=== PATIENT | female | born 2005 | race Caucasian/White ===

== ENCOUNTER 2024-12-13 21:40 | Emergency (ER) | payer OTHER, SELFPAY ==
[2024-12-13 21:42] VITALS: BP 112/84
--- NOTE | 2024-12-14 00:19 | ED.GENMED ---
History of Present Illness
General
Chief Complaint: Back Pain
History of Present Illness
History of Present Illness:
FOCUSED PAST MEDICAL HISTORY
- The patient has no significant past medical history
REVIEW OF OLD RECORDS
- No old records available for review in [facility]
Note:
CHIEF COMPLAINT(S)
Low back pain and diffuse abdominal pain.
HISTORY OF PRESENT ILLNESS
The patient is a 19-year-old female presenting with two days of low back pain, accompanied by diffuse abdominal pain. The onset of symptoms was mild but has progressively worsened. The patient denies dysuria and the possibility of . She
reported using ibuprofen (Motrin) approximately six hours prior, which provided minimal relief.
ADDITIONAL HISTORY OBTAINED FROM SOURCE OTHER THAN PATIENT
Additional information was obtained from the patients mother at the bedside.
PHYSICAL EXAM
- General: Well appearing in no distress
- HEENT: Moist oral mucosa
- Cardiovascular: No murmurs, normal heart rate, regular rhythm, No chest wall tenderness
- Pulmonary: No respiratory distress, breath sounds are clear and equal
- Abdomen: Soft with no peritoneal signs, minimal diffuse abdominal tenderness
- Back: There is midline L-spine tenderness, decreased active range of motion of the thoracolumbar spine related pain
- Neurologic: Excellent strength all extremities, no coordination deficits
- Psychiatric: Appropriate mental status, normal insight and judgement
- Extremities: Nontender, no edema, moves all extremities equally
- Skin: No rash, no lesions
SUMMARY OF ENCOUNTER
The patient was seen in the emergency department for low back pain and diffuse abdominal pain persisting for two days. The symptoms have been increasing in intensity despite the use of ibuprofen. Physical exam revealed midline lumbar spine
tenderness and mild diffuse abdominal tenderness. The management included obtaining a lumbar spine X-ray, administering toradol, and ordering a urinalysis and urine HCG.
DISPOSITION
Discharge.
EMERGENCY TREATMENTS ADMINISTERED
- A dose of ketorolac (Toradol) was administered.
MEDICAL DECISION MAKING
- Number and Complexity of Problems Addressed:
Chronic conditions affecting care.
- Data:
Category 1:
My independent interpretation of the lumbar spine X-ray will be performed once available. A urinalysis and urine test have been ordered.
Category 2:
Clinical information was obtained from the patients mother acting as an independent historian.
Category 3:
The mother was involved in discussions regarding the patients symptoms and care plan.
DIFFERENTIAL DIAGNOSIS
The Differential Diagnosis includes, in no particular order and is not limited to:
- Muscular strain
- Urinary tract infection
- Kidney stone
- Dysmenorrhea
- Ovarian cyst
- Pelvic inflammatory disease
- Appendicitis
- Constipation
- Gastroenteritis
- Lumbar spine pathology
INDEPENDENT REVIEW OF LABS AND INTERPRETATION OF TESTS
- My independent interpretation of lumbar spine X-ray no acute finding on x-ray
RADIOLOGY
- X-ray of the lumbar spine obtained
LABS
- Urinalysis 80-90 white cells however the patient has greater than 30 squamous epithelial cells, hCG testing negative
UPDATE
- I reevaluated the patient, the patient does feel improved after Toradol was given IM. Although the urinalysis suggest more of a contaminated specimen, she does have some increased urinary frequency therefore we will start antibiotics.
SUMMARY OF ENCOUNTER
The patient presented to the emergency department with low back pain and diffuse abdominal pain for two days, which has been increasing in intensity despite the use of [id number] ibuprofen. Physical examination showed midline lumbar spine
tenderness and mild diffuse abdominal tenderness. A lumbar spine X-ray was conducted, revealing no significant abnormalities. The urinalysis showed an increased number of white blood cells, suggestive of infection, but also had a high number of skin
cells, indicating a possible contaminated specimen. The decision was made to treat for a urinary tract infection with antibiotics, despite the possibility of specimen contamination, due to patient symptoms. Ibuprofen (Motrin) was recommended for
pain management.
EMERGENCY TREATMENTS ADMINISTERED
A dose of ketorolac (Toradol) was administered.
PLAN
Initiate antibiotic treatment for potential urinary tract infection. Continue ibuprofen for pain management, taking two [id number]-[id number] tablets every eight hours with food.
INDEPENDENT REVIEW OF LABS AND INTERPRETATION OF TESTS
- My independent review of lumbar spine X-ray indicates no significant abnormalities.
- My independent review of the urinalysis shows an increased number of white blood cells but is potentially contaminated by skin cells.
PATIENT EDUCATION AND COUNSELING
Discussed the potential for the urinalysis to be a false positive for infection due to contamination but decided to treat symptomatically with antibiotics. Advise on the importance of taking ibuprofen with food to minimize gastrointestinal
discomfort.
FOLLOW-UP INSTRUCTIONS
If the radiologist identifies any concerning findings on the lumbar spine X-ray, the patient will be contacted. Otherwise, no immediate follow-up was specified.
MEDICATION RECONCILIATION
1. Ketorolac administered in the emergency department.
2. Continue OTC ibuprofen, two tablets every eight hours.
MEDICAL DECISION MAKING
- Number and Complexity of Problems Addressed: Chronic conditions affecting care. Differential Diagnosis includes muscular strain, urinary tract infection, kidney stone, dysmenorrhea, ovarian cyst, pelvic inflammatory disease, appendicitis,
constipation, gastroenteritis, lumbar spine pathology.
- Data:
Category 1: My independent interpretation of the lumbar spine X-ray and urinalysis has been conducted.
Category 2: Clinical information was obtained from the patients mother, acting as an independent historian.
- Risk: Prescription drug management was utilized with the initiation of antibiotic therapy. Consideration of Admission/Observation: Escalation of care including admission/observation was considered given the complexity and risk of the patients
presenting complaint, exam findings, and/or their underlying comorbidities. However, ultimately I feel the patient is safe for outpatient management with close follow up. Reasoning: Work-up reassuring, does not reveal any acute life/organ
threatening processes, patients symptoms well controlled upon reevaluation, reexamination is reassuring, vitals are stable, patient agreeable with discharge, reliable for follow-up.
DIAGNOSIS
1. Low back pain, unspecified (ICD-10: M54.5).
2. Abdominal pain, unspecified site (ICD-10: R10.9).
3. Possible urinary tract infection (ICD-10: N39.0).
Phy Exam
Physical Exam
Physical Exam:
See HPI
Course
Orders/Labs/Results
Orders:
Orders
12/14/24 00:24
Ketorolac [Toradol] 30 mg IM NOW STA
12/14/24 00:25
Test Result ONCE
12/14/24 00:38
HCG, Urine Qualitative Screen Urgent
Date Specimen was Collected: 12/14/24
Time Specimen was Collected: 00:27
Urinalysis Reflex To Culture Urgent
Date Specimen was Collected: 12/14/24
Time Specimen was Collected: 00:27
Urine Microscopic Reflex Cult Urgent
Urine Culture Urgent
POOL Source: U
Specimen Description:
Date Specimen was Collected: 12/14/24
Time Specimen was Collected: 00:27
12/14/24 01:33
CR Lumbar Spine Comp Min 4 Vw* Urgent
Comment:
Reason For Exam: pain
12/14/24 02:00
Cephalexin Monohydrate [Keflex] 500 mg PO NOW STA
Abnormal Lab Results
12/14/24
00:38
Ur Occult Blood Reflex 4+ A
(Negative)
Urine Nitrite (Reflex) Positive A
(Negative)
Leukocyte Esterase Rfl 3+ A
(Negative)
Urine RBC 3-6 A /HPF
(0-2)
Urine WBC (Reflex) 80-90 A /HPF
(0-5)
Urine Bacteria (Reflex) Many A
(Negative)
Urine Albumin (Reflex) 2+ A
(Neg - Trace)
Vital Signs
Initial and Last Documented VS:
Initial Vital Signs
Temp Pulse Resp BP Pulse Ox
36.6 C 82 18 112/84 99
12/13/24 21:42 12/13/24 21:42 12/13/24 21:42 12/13/24 21:42 12/13/24 21:42
Last Documented Vital Signs
Temp Pulse Resp BP Pulse Ox
36.6 C 82 18 112/84 99
12/13/24 21:42 12/13/24 21:42 12/13/24 21:42 12/13/24 21:42 12/14/24 00:20
*Pulse Oximetry
SaO2: 99
Patient hypoxic: no
*Critical Care Note
Total Time (30-74mins, 75-104mins- exclusive of procedures): Not Applicable
ED Attending Note
-
Portions of this chart may have been created with voice recognition software.� Occasional wrong word or��sound alike� substitutions may have occurred due to the inherent limitations of voice recognition software.
Discharge Plan
Departure
Patient Disposition: Home (Routine Discharge)
Date of Disposition: 12/14/24
Time of Disposition: 02:01
Patient with high blood pressure during this ER visit?: Yes
Discharge Problem:
Low back pain
Instructions: Low Back Pain (DC)
Prescriptions:
New
cephalexin 500 mg tablet
500 mg PO TID Qty: 21 0RF
Referrals:
Effie Luis MD [Family Provider, Family Practice]
Activity Restrictions/Additional Instructions:
The urinalysis does show an increased number of white cells (80-90) however there is a lot of skin cells suggesting that the urinalysis could be just a 'contaminated specimen' as opposed to a true urinary tract infection. However since you do have
some symptoms of UTI, I am placing you on antibiotics, Keflex.
Interventions
Interventions:
*Risk Screen - Suicide Last Done: 12/13/24 21:42
*General Assessment Last Done: 12/13/24 21:42
*Neglect/Abuse Screening Last Done: 12/13/24 21:43
*ED- Fall Risk Assessment Last Done: 12/14/24 00:52
*ED COVID-19 Vaccine History Last Done: 12/14/24 00:52
ED-Musculoskeletal Assessment Last Done: 12/14/24 00:52
Discharge Date and Time
Print Language: PANAMANIAN
[2024-12-14] MEDS: TORADOL 30 MG IM (00:36)
[2024-12-14 00:47] LABS: HCG, Urine Qualitative Screen Negative; Urine Character Cloudy (Clear)
[2024-12-14 01:15] LABS: Urine Squamous Cell >30 /LPF (Few)
[2024-12-14 01:16] LABS: Urine White Cell 80-90 /HPF (0-5)
--- NOTE | 2024-12-14 01:42 | EDRN ---
Patient states that the pain has improved since the toradol.
[2024-12-14] MEDS: KEFLEX 500 MG PO (02:13)
== END 2024-12-14 02:32 | disposition home or self-care (01) ==
LOC: EMR 21:40
PROVIDERS: EMERGENCY PHYSICIAN Emergency Medicine; FAMILY PHYSICIAN Family Medicine
DX: M54.50 Low back pain, unspecified (principal); R10.84 Generalized abdominal pain; R35.0 Frequency of micturition; R03.0 Elevated blood-pressure reading, without diagnosis of hypertension
CPT/HCPCS: 99284; 96372; 72110; 81003; 81015; 81025; 87077; 87086; 87186